=== PATIENT | female | born 1980 | race Caucasian/White ===

== ENCOUNTER → 2016-08-11 | Outpatient (CLI) | payer OTHER | LOC: FIMAGING 12:59 | PROVIDERS: ATTEND Obstetrics & Gynecology | DX: O35.8XX0 Maternal care for other (suspected) fetal abnormality and damage, not applicable or unspecified (principal); Z3A.20 20 weeks gestation of pregnancy ==

== ENCOUNTER → 2016-10-05 | Outpatient (CLI) | payer OTHER | LOC: FIMAGING 12:27 | PROVIDERS: ATTEND Obstetrics & Gynecology | DX: O43.123 Velamentous insertion of umbilical cord, third trimester (principal); Z3A.28 28 weeks gestation of pregnancy ==

== ENCOUNTER → 2016-11-02 | Outpatient (CLI) | payer OTHER | LOC: FIMAGING 09:20 | PROVIDERS: ATTEND Obstetrics & Gynecology | DX: O28.8 Other abnormal findings on antenatal screening of mother (principal); O09.523 Supervision of elderly multigravida, third trimester; Z3A.32 32 weeks gestation of pregnancy ==

== ENCOUNTER → 2016-12-07 | Outpatient (CLI) | payer OTHER | LOC: FIMAGING 09:10 | PROVIDERS: ATTEND Obstetrics & Gynecology | DX: Z34.93 Encounter for supervision of normal pregnancy, unspecified, third trimester (principal); Z3A.37 37 weeks gestation of pregnancy; Z98.891 History of uterine scar from previous surgery ==

== ENCOUNTER 2016-12-23 05:36 | Inpatient (IN) | payer OTHER ==
--- NOTE | 2016-11-25 16:00 | GHP ---
[f rep st] HISTORY AND PHYSICAL DATE OF ADMISSION: 12/23/2016 ADMITTING DIAGNOSES: 1. Intrauterine at 39 weeks. 2. Previous section, declines trial of labor. HISTORY: The patient is a 36-year-old, 2, para 1-0-0-1 at 39 weeks gestation, with an estimated due date of 12/28/2016 by last menstrual period and consistent with a first-trimester ultrasound at 8 weeks. The patient presents to Labor and Delivery with a history of a previous , who desires repeat C section, declines a trial of labor. The patient states there is good movement. Denies any leakage of fluid, vaginal bleeding or any painful contractions at this time. The patient presented to [facility] [place] a [place] [facility] [place] The has been complicated by a known furcate umbilical cord. She has had followup growth ultrasounds with MFM. Growth has been normal, and most recent ultrasound at 32 weeks showed normal growth in 48th percentile. The patient is Rh negative. Father of the baby is also Rh negative. Patient did not need RhoGAM. The patient does have a history of depression and was on Zoloft for the first year after her first . The patient did receive both flu shot and Tdap during this . GBS culture has not been done yet. PAST OBSTETRIC HISTORY: In July of 2012, the patient delivered a viable female at 41 weeks and 3 days, weighing 8 pounds, via secondary to arrest of dilation at 4 cm. PAST GYNECOLOGIC HISTORY: Age of menarche 14. Cycles are every 28 days for 6 days. LMP 03/23/2016. Positive test 04/22/2016. The patient denies a history of abnormal Pap smears or any exposure to sexually transmitted diseases. PAST MEDICAL HISTORY: History of depression after her first . PAST SURGICAL HISTORY: in 2012, wisdom teeth extraction. MEDICATIONS: vitamins. ALLERGIES: Sulfa, penicillin. SOCIAL HISTORY: The patient is . Lives with her and their daughter. She is a wood fence erector. Denies any alcohol, tobacco or illicit drug use. FAMILY HISTORY: Mother with chronic hypertension and hyperthyroidism. A grandfather with prostate cancer. Paternal aunt with rheumatoid arthritis. Paternal grandmother and maternal grandfather have Alzheimer's disease. REVIEW OF SYSTEMS: A 10-point review of systems is negative. Pertinent positives noted in the HPI. LABS: O negative. Antibody negative. RPR nonreactive. Rubella immune. Hepatitis B surface antigen negative. HIV negative. Urine culture is negative. Pap smear negative. GC, chlamydia cultures are negative. GBS is pending. PHYSICAL EXAMINATION: VITAL SIGNS: On admission are stable. GENERAL: The patient is alert and oriented x3, in no apparent distress. CARDIOVASCULAR: Regular rate and rhythm. LUNGS: Clear to auscultation bilaterally. ABDOMEN: Gravid, soft, nontender, nondistended. PELVIC: Deferred. EXTREMITIES: Normal to inspection, without edema or swelling. ASSESSMENT: The patient is a 36-year-old, , para 1-0-0-1 at 39 weeks, with a previous section, declines a trial of labor. PLAN: 1. Admit to Labor and Delivery for repeat . 2. Surgical consents were obtained. Discussed, risks, benefits and alternatives of the procedure including but not limited to bleeding, infection and damage to surrounding organs. The patient understands all risks and wants to proceed with surgery at this time. 3. Antibiotics ammonia distiller to OR. The patient is penicillin allergic. Will give clindamycin. 4. SCDs for DVT prophylaxis. /[id number]/MODL MTDD
--- NOTE | 2016-11-25 16:00 | GHP ---
[f rep st] HISTORY AND PHYSICAL DATE OF ADMISSION: 12/23/2016 ADMITTING DIAGNOSES: 1. Intrauterine at 39 weeks. 2. Previous section, declines trial of labor. HISTORY: The patient is a 36-year-old, 2, para 1-0-0-1 at 39 weeks gestation, with an estimated due date of 12/28/2016 by last menstrual period and consistent with a first-trimester ultrasound at 8 weeks. The patient presents to Labor and Delivery with a history of a previous , who desires repeat C section, declines a trial of labor. The patient states there is good movement. Denies any leakage of fluid, vaginal bleeding or any painful contractions at this time. The patient presented to [facility] as a transfer from [facility] [place] at 24 weeks. The has been complicated by a known furcate umbilical cord. She has had followup growth ultrasounds with MFM. Growth has been normal, and most recent ultrasound at 32 weeks showed normal growth in 48th percentile. The patient is Rh negative. Father of the baby is also Rh negative. Patient did not need RhoGAM. The patient does have a history of depression and was on Zoloft for the first year after her first . The patient did receive both flu shot and Tdap during this . GBS culture has not been done yet. PAST OBSTETRIC HISTORY: In July of 2012, the patient delivered a viable female at 41 weeks and 3 days, weighing 8 pounds, via secondary to arrest of dilation at 4 cm. PAST GYNECOLOGIC HISTORY: Age of menarche 14. Cycles are every 28 days for 6 days. LMP 03/23/2016. Positive test 04/22/2016. The patient denies a history of abnormal Pap smears or any exposure to sexually transmitted diseases. PAST MEDICAL HISTORY: History of depression after her first . PAST SURGICAL HISTORY: in 2012, wisdom teeth extraction. MEDICATIONS: vitamins. ALLERGIES: Sulfa, penicillin. SOCIAL HISTORY: The patient is . Lives with her and their daughter. She is a camp dishwasher. Denies any alcohol, tobacco or illicit drug use. FAMILY HISTORY: Mother with chronic hypertension and hyperthyroidism. A grandfather with prostate cancer. Paternal aunt with rheumatoid arthritis. Paternal grandmother and maternal grandfather have Alzheimer's disease. REVIEW OF SYSTEMS: A 10-point review of systems is negative. Pertinent positives noted in the HPI. LABS: O negative. Antibody negative. RPR nonreactive. Rubella immune. Hepatitis B surface antigen negative. HIV negative. Urine culture is negative. Pap smear negative. GC, chlamydia cultures are negative. GBS is pending. PHYSICAL EXAMINATION: VITAL SIGNS: On admission are stable. GENERAL: The patient is alert and oriented x3, in no apparent distress. CARDIOVASCULAR: Regular rate and rhythm. LUNGS: Clear to auscultation bilaterally. ABDOMEN: Gravid, soft, nontender, nondistended. PELVIC: Deferred. EXTREMITIES: Normal to inspection, without edema or swelling. ASSESSMENT: The patient is a 36-year-old, , para 1-0-0-1 at 39 weeks, with a previous section, declines a trial of labor. PLAN: 1. Admit to Labor and Delivery for repeat . 2. Surgical consents were obtained. Discussed, risks, benefits and alternatives of the procedure including but not limited to bleeding, infection and damage to surrounding organs. The patient understands all risks and wants to proceed with surgery at this time. 3. Antibiotics receptionist telephone operator to OR. The patient is penicillin allergic. Will give clindamycin. 4. SCDs for DVT prophylaxis. /[id number]/MODL MTDD
--- NOTE | 2016-11-25 16:00 | GHP ---
[f rep st] HISTORY AND PHYSICAL DATE OF ADMISSION: 12/23/2016 ADMITTING DIAGNOSES: 1. Intrauterine at 39 weeks. 2. Previous section, declines trial of labor. HISTORY: The patient is a 36-year-old, 2, para 1-0-0-1 at 39 weeks gestation, with an estimated due date of 12/28/2016 by last menstrual period and consistent with a first-trimester ultrasound at 8 weeks. The patient presents to Labor and Delivery with a history of a previous , who desires repeat C section, declines a trial of labor. The patient states there is good movement. Denies any leakage of fluid, vaginal bleeding or any painful contractions at this time. The patient presented to [facility] [place] [facility] [place] The has been complicated by a known furcate umbilical cord. She has had followup growth ultrasounds with MFM. Growth has been normal, and most recent ultrasound at 32 weeks showed normal growth in 48th percentile. The patient is Rh negative. Father of the baby is also Rh negative. Patient did not need RhoGAM. The patient does have a history of depression and was on Zoloft for the first year after her first . The patient did receive both flu shot and Tdap during this . GBS culture has not been done yet. PAST OBSTETRIC HISTORY: In July of 2012, the patient delivered a viable female at 41 weeks and 3 days, weighing 8 pounds, via secondary to arrest of dilation at 4 cm. PAST GYNECOLOGIC HISTORY: Age of menarche 14. Cycles are every 28 days for 6 days. LMP 03/23/2016. Positive test 04/22/2016. The patient denies a history of abnormal Pap smears or any exposure to sexually transmitted diseases. PAST MEDICAL HISTORY: History of depression after her first . PAST SURGICAL HISTORY: in 2012, wisdom teeth extraction. MEDICATIONS: vitamins. ALLERGIES: Sulfa, penicillin. SOCIAL HISTORY: The patient is . Lives with her and their daughter. She is a telecom network manager. Denies any alcohol, tobacco or illicit drug use. FAMILY HISTORY: Mother with chronic hypertension and hyperthyroidism. A grandfather with prostate cancer. Paternal aunt with rheumatoid arthritis. Paternal grandmother and maternal grandfather have Alzheimer's disease. REVIEW OF SYSTEMS: A 10-point review of systems is negative. Pertinent positives noted in the HPI. LABS: O negative. Antibody negative. RPR nonreactive. Rubella immune. Hepatitis B surface antigen negative. HIV negative. Urine culture is negative. Pap smear negative. GC, chlamydia cultures are negative. GBS is pending. PHYSICAL EXAMINATION: VITAL SIGNS: On admission are stable. GENERAL: The patient is alert and oriented x3, in no apparent distress. CARDIOVASCULAR: Regular rate and rhythm. LUNGS: Clear to auscultation bilaterally. ABDOMEN: Gravid, soft, nontender, nondistended. PELVIC: Deferred. EXTREMITIES: Normal to inspection, without edema or swelling. ASSESSMENT: The patient is a 36-year-old, , para 1-0-0-1 at 39 weeks, with a previous section, declines a trial of labor. PLAN: 1. Admit to Labor and Delivery for repeat . 2. Surgical consents were obtained. Discussed, risks, benefits and alternatives of the procedure including but not limited to bleeding, infection and damage to surrounding organs. The patient understands all risks and wants to proceed with surgery at this time. 3. Antibiotics video production intern to OR. The patient is penicillin allergic. Will give clindamycin. 4. SCDs for DVT prophylaxis. /[id number]/MODL MTDD
[2016-12-23] MEDS ORDERED: LR 500 ML IV ONE (05:51)
[2016-12-23] MEDS ORDERED: CITRIC ACID/SODIUM CITRATE 30 ML UDCUP PO ONE (05:51)
[2016-12-23] MEDS ORDERED: CLINDAMYCIN 900 MG/DEXTROSE 50 ML IV ONE (05:51)
[2016-12-23] MEDS ORDERED: LR 1,000 ML IV SCH (06:00)
[2016-12-23 06:08] LABS: PLATELET COUNT 177 10^3/uL (150-400)
--- NOTE | 2016-12-23 07:28 | PREANESOB ---
Obstetric Pre-Anesthesia Info - General Info Proposed Procedure: Repeat C/S NPO Start Time: 00:00 : 2 Para: 1 TODD: 12/28/16 Gestational Age: 39 week(s) and 2 day(s) - Info Status: Full Term, [facility] - Labor Status Section History: Repeat Indications for Current Section: Elective/Repeat Labor Epidural: No Anesthesia Allergies/Adverse Reactions: Allergy/AdvReac Type Severity Reaction Status Date / Time Penicillins Allergy Verified 09/08/14 18:39 Sulfa (Sulfonamide Allergy Verified 12/23/16 05:50 Antibiotics) Home Medications: Medication Instructions Recorded Oral Bcp 09/08/14 Sertraline HCl 09/08/14 Visit Medications: Generic Name Dose Route Start Last Admin Trade Name Freq PRN Reason Stop Dose Admin Lactated Ringer's 1,000 mls @ 125 mls/hr 12/23/16 06:00 12/23/16 07:00 Lr IV 06/21/17 05:59 1,000 mls CONT JODY Administration Discontinued Medications Generic Name Dose Route Start Last Admin Trade Name Freq PRN Reason Stop Dose Admin Citric Acid/Sodium Citrate 30 ml 12/23/16 05:51 12/23/16 07:19 Bicitra PO 12/23/16 05:52 30 ml ONCALL ONE Administration Clindamycin Phosphate/Dextrose 50 mls @ 100 mls/hr 12/23/16 05:51 12/23/16 07 :19 Cleocin 900 Mg (Premix) IV 12/23/16 06:20 50 mls ONCALL ONE Administration Protocol Lactated Ringer's 500 mls @ 0 mls/hr 12/23/16 05:51 12/23/16 07:00 Lr IV 12/23/16 05:52 500 mls ONCE ONE Administration As Directed - Anesthesia History Response to Local Anesthetics: Normal Anesthesia & Operative History: No Prior Problems (Epidural for labor and C/S 4 yrs ago.) Family Anesthesia History: Negative - Social History Substance Use/Abuse: Denies - Vital Signs Height/Weight (Nursing): Height 165.1 cm Weight 75.75 kg - Focused Exam Neck exam: FROM Mallampati Score: Class 1 Mouth exam: normal dental/mouth exam Pulmonary: no respiratory distress, no rales or rhonchi, clear to auscultation Cardiovascular: regular rate and rhythym, no murmur, rub, or gallop Labs: 12/23/16 05:50 Patient ABO/Rh O NEGATIVE 12/23/16 05:50 - Plan Consent Signed and on Chart: Yes Patient/Guardian Understands and Agrees to Plan: Yes
[2016-12-23] MEDS ORDERED: MEPERIDINE 25 MG/ML SYR IVP PRN (07:30)
[2016-12-23] MEDS ORDERED: fentaNYL 100 MCG/2 ML INJ IVP PRN (07:30)
[2016-12-23] MEDS ORDERED: PHENYLEPHRINE HCL 100 MCG/ML SYR IVP PRN (07:30)
[2016-12-23] MEDS ORDERED: METOCLOPRAMIDE 10 MG/2 ML VIAL IVP PRN (07:30)
[2016-12-23] MEDS ORDERED: ONDANSETRON 4 MG/2 ML VIAL IVP PRN ×2 (07:30)
[2016-12-23] MEDS ORDERED: NALOXONE HCL 0.4 MG/ML INJ IVP PRN ×2 (07:30)
[2016-12-23] MEDS ORDERED: morphINE PF 5 MG/10 ML INJ ONE (07:40)
[2016-12-23] MEDS ORDERED: OXYTOCIN 100 UNITS/10 ML VIAL ONE (07:40)
[2016-12-23] MEDS ORDERED: PHENYLEPHRINE HCL 100 MCG/ML SYR ONE (07:40)
[2016-12-23] MEDS ORDERED: fentaNYL 100 MCG/2 ML INJ ONE (07:41)
[2016-12-23] MEDS ORDERED: ONDANSETRON 4 MG/2 ML VIAL ONE (08:47)
[2016-12-23] MEDS ORDERED: POLYETHYLENE GLYCOL 3350 17 GM PKT PO PRN (09:41)
[2016-12-23] MEDS ORDERED: MAGNESIUM HYDROXIDE 30 ML UDCUP PO PRN (09:41)
[2016-12-23] MEDS ORDERED: PROMETHAZINE HCL 25 MG/ML INJ IVP PRN (09:41)
[2016-12-23] MEDS ORDERED: DOCUSATE SODIUM 100 MG CAP PO PRN (09:41)
[2016-12-23] MEDS ORDERED: SIMETHICONE 80 MG TAB CHEW PO PRN (09:41)
[2016-12-23] MEDS ORDERED: LACTULOSE 20 GM/30 ML UDCUP PO PRN (09:41)
[2016-12-23] MEDS ORDERED: BISACODYL 10 MG SUPP PR PRN (09:41)
--- NOTE | 2016-12-23 09:49 | POSTANESTH ---
Post Anesthetic Evaluation Cardiovascular Status: Normal, Stable, Similar to Pre-Op Cond Respiratory Status: Normal, Stable, Similar to Pre-op Cond. Level of Consciousness/Mental Status: Can Participate in Eval, Alert and Oriented Pain Control: Adequate, Prn Tx Ordered Nausea/Vomiting Control: Adequate, Prn Tx Ordered Complications Possibly Related to Anesthesia: None Noted
--- NOTE | 2016-12-23 09:51 | OBDEL ---
Info Type: Repeat Presentation at Delivery: Vertex L&D Analgesia/Anesthesia Type: Spinal GBS+: Yes Antibiotic Used for + GBS: Clindamycin Intrapartum Medications: Generic Name Dose Route Start Last Admin Trade Name Freq PRN Reason Stop Dose Admin Lactated Ringer's 1,000 mls @ 125 mls/hr 12/23/16 06:00 12/23/16 07:00 Lr IV 06/21/17 05:59 1,000 mls CONT JODY Administration Discontinued Medications Generic Name Dose Route Start Last Admin Trade Name Freq PRN Reason Stop Dose Admin Citric Acid/Sodium Citrate 30 ml 12/23/16 05:51 12/23/16 07:19 Bicitra PO 12/23/16 05:52 30 ml ONCALL ONE Administration Clindamycin Phosphate/Dextrose 50 mls @ 100 mls/hr 12/23/16 05:51 12/23/16 07 :19 Cleocin 900 Mg (Premix) IV 12/23/16 06:20 50 mls ONCALL ONE Administration Protocol Lactated Ringer's 500 mls @ 0 mls/hr 12/23/16 05:51 12/23/16 07:00 Lr IV 12/23/16 05:52 500 mls ONCE ONE Administration As Directed - Care Provider Schedule Announcer/SALES EFFECTIVENESS MANAGER: Marilia Turner - Hospital Course Intrapartum: 12/23/16 09:49 Previous c/s, declines trial of labor. Indications for Delivery: Elective (Previous c/s, declines trial of labor) Operative Report - Delivery Pre-op Diagnoses: IUP @ 39 2/7 weeks with previous c/s, declines trial of labor Post-op Diagnoses: IUP @ 39 2/7 weeks with previous c/s, declines trial of labor History of Prior Section: Yes Number of Prior Sections: 1 Indications for Prior Section: Arrest of Dilation Indications for Current Section: Elective/Repeat Procedure: Scheduled Surgeon: Jenna Burk Compliance Representative Dealer: Valery Cross Anesthesiologist: Dagoberto Day Complications: None Findings: A viable male infant in cephalic presentation with 8 and 9 Apgars at 0855 on 12/23. Cord clamping delayed. Placenta delivered spontaneously intact with a 3-vc. Grossly normal appearing uterus, tubes and ovaries bilaterally. Specimen(s)/Path: Other (Specify) (None) IV Fluid (ml): 2,300 EBL: 800 cc UO: 200 cc clear urine at end of pro [place] [facility] Delivery Date: 12/23/16 Delivery Time: 08:55 TODD: 12/28/16 Gestational Age: 39 week(s) and 2 day(s) Sex of Infant: Male Score (1 Min): 8 Score (5 Min): 9 ICD10 Worksheet Patient Problems: Problems Problem Status Onset Previous section complicating Acute S/P repeat low transverse Acute - ICD10 Problem Qualifiers (1) Previous section complicating (2) S/P repeat low transverse
[2016-12-23] MEDS: KETOROLAC 30 MG/1 ML SDV IVP SCH ×3 (10:58→23:50)
--- NOTE | 2016-12-23 11:28 | GOP ---
[f rep st] OPERATIVE REPORT DATE OF OPERATION: 12/23/2016 SURGEON: Jenna Burk DO GROMMET MACHINE OPERATOR: 1. Valery Cross CNM. 2. LUCERO Shukla. ANESTHESIA: Spinal anesthesia. ANESTHESIOLOGIST: Dagoberto Day MD. PREOPERATIVE DIAGNOSIS: Intrauterine at 39 and 2/7 weeks gestation, with history of a prior low transverse section, declines trial of labor. Desires repeat. POSTOPERATIVE DIAGNOSIS: Intrauterine at 39 and 2/7 weeks gestation, with history of a prior low transverse section, declines trial of labor. Desires repeat. PROCEDURE PERFORMED: Repeat low transverse section. FINDINGS: A viable male infant in cephalic presentation with 8 and 9 Apgars, born at 0855. Cord clamping was delayed x 60 seconds. Placenta delivered spontaneously, intact with 3-vessel cord. Grossly normal-appearing uterus, tubes, and ovaries bilaterally. ESTIMATED BLOOD LOSS: 800 cc. INDICATIONS: The patient is a 36-year-old 2, para 1-0-0-1, at 39 weeks and 2/7 days, with an estimated due date 12/28/16 by LMP and consistent with first trimester. She has a history of a previous secondary to arrest of dilation at 4 cm. She declines a trial of labor and desires a repeat C- section at this time.0 Surgical consents were obtained. We discussed risks, benefits, and alternatives of the procedure including but not limited to bleeding, infection and damage to surrounding organs. The patient understands all risks at this time and wants to proceed with surgery. DESCRIPTION OF PROCEDURE: Patient was taken to the operating room, where she was given spinal anesthesia without difficulty. She was prepped and draped in usual sterile manner and placed in supine position with a leftward tilt. Griffin catheter was placed in her bladder. After adequate anesthesia was assured, a Pfannenstiel skin incision was made at the previous scar. The incision was carried down to the underlying layer of fascia with the Bovie. Fascia was then incised in the midline. Fascial incision was extended laterally with Ryan scissors. Superior aspect of fascial incision was grasped with Megha clamps, elevated, and the rectus muscles dissected off sharply. Inferior aspect of the fascial incision was then grasped with Megha clamps, elevated, and the rectus muscles were dissected off sharply. Rectus muscles were then in the midline. Peritoneum was then visualized and entered bluntly and extended superiorly and inferiorly, with good visualization of bladder. Bladder blade was then inserted. Vesicouterine peritoneum was grasped with the pickups, entered sharply with Metzenbaum scissors. Incision was extended laterally, and the bladder flap was created digitally. Bladder blade was then reinserted. A low transverse uterine incision was then made with a knife. Incision was extended anteriorly and posteriorly digitally. There was clear amniotic fluid noted upon entry to the amniotic sac. The baby was then delivered in cephalic presentation without difficulty. Mouth and nose were bulb suctioned. We delayed cord clamping for 1 minute. The cord was then clamped x2 and cut. The was then handed off to awaiting nurse practitioner. Cord blood was obtained and sent. The placenta was then removed , spontaneously intact with 3-vessel cord. The uterus was then exteriorized and cleared of all clots and debris. Uterine incision was then repaired with 0 Vicryl in a running, locked fashion. Hemostasis was noted. A second imbricating layer of suture was then performed with 0 Vicryl. Again, hemostasis was noted. The uterus was then returned to the abdomen. The gutters were cleared of all clots and debris. Reinspection of the uterine incision revealed that it was hemostatic. The rectus muscles were then reapproximated with 2-0 Vicryl in an inverted mattress fashion. The fascia was then closed with 0 Vicryl in a running fashion. Hemostasis was noted. Skin was then closed with 4 -0 Vicryl on a Giovany needle. Steri-Strips were then placed, as well as a bandage. Patient tolerated the procedure well. No complications noted. Sponge, lap, needle, and instrument counts correct x2. The patient was then taken to recovery room in stable condition. IV FLUIDS: 2300 cc of LR. URINE OUTPUT: 200 cc of clear urine at the end the procedure. /[id number]/MODL MTDD
[2016-12-23] MEDS: SENNOSIDES/DOCUSATE SODIUM TAB PO SCH (23:51)
[2016-12-24] MEDS: KETOROLAC 30 MG/1 ML SDV IVP SCH (06:10)
[2016-12-24] MEDS: HYDROCODONE/APAP 5/325 TAB PO PRN ×5 (06:14→22:09)
[2016-12-24 08:27] LABS: INR 0.93 (0.83-1.16); PROTIME(PATIENT) 12.4 SEC (12.0-15.0)
[2016-12-24] MEDS: SENNOSIDES/DOCUSATE SODIUM TAB PO SCH ×2 (08:29→20:00)
--- NOTE | 2016-12-24 09:09 | OBPP ---
Progress Note Assessment/Plan: Assessment: [id number], s/p repeat c/s POD#1 post op anemia Plan: routine post op care start PO iron plan to d/c home tomorrow 12/24/16 09:06 Subjective/ Course: 12/24/16 09:07 pt doing well, she reports min pain, cramping increased with . She reports min bleeding, no clots. She is without difficulty. No void yet, waite still in place. She reports passing gas. She is ambulating without difficulty. FOB is at BS, supportive. Objective: 12/24/16 08:00 Patient ABO/Rh O NEGATIVE 12/23/16 05:50 Temp Pulse Resp BP Pulse Ox 37.2 C 86 15 94/58 L 95 12/24/16 05:11 12/24/16 05:11 12/24/16 05:11 12/24/16 05:11 12/24/16 05:11 Exam: constitutional: WNWF, A&Ox3 Heart: RRR Chest: CTA-B Abdomen: soft, nontender incision: dressing C/D/I uterus: firm @ U-1 lochia: min rubra extremities: trace edema, negative camille's sign Uterine Position/Fundal Height: Umbilicus -1, Midline Uterine Tone: Firm
[2016-12-24] MEDS: IBUPROFEN 600 MG TAB PO PRN ×2 (11:50→18:12)
[2016-12-24] MEDS: FERROUS SULFATE 325 MG TAB PO SCH (20:00)
[2016-12-25] MEDS: IBUPROFEN 600 MG TAB PO PRN ×3 (01:28→14:49)
[2016-12-25] MEDS: HYDROCODONE/APAP 5/325 TAB PO PRN ×3 (02:07→13:05)
[2016-12-25] MEDS: SENNOSIDES/DOCUSATE SODIUM TAB PO SCH (07:38)
[2016-12-25] MEDS: FERROUS SULFATE 325 MG TAB PO SCH ×2 (07:39→08:08)
[2016-12-25 07:58] VITALS: BP 113/73; PULSE 87; RESP 15; TEMP 97.8; O2SAT 95
--- NOTE | 2016-12-25 16:02 | OBPP ---
Progress Note Assessment/Plan: Assessment: 36 yo WF POD#2 s/p scheduled repeat CD doing well. Desires DC home today. Plan: DC home today. 12/25/16 15:58 Subjective/ Course: 12/24/16 09:07 pt doing well, she reports min pain, cramping increased with . She reports min bleeding, no clots. She is without difficulty. No void yet, waite still in place. She reports passing gas. She is ambulating without difficulty. FOB is at BS, supportive. 12/25/16 15:59 Patient is awake and baby boy. She is comfortable with abdominal binder. She is ambulating, passing flatus, and voiding spontaneously. Pain is controlled with PO narcotics and ibuprofen. She desires DC home today if possible. Objective: 12/24/16 08:00 Patient ABO/Rh O NEGATIVE 12/23/16 05:50 Temp Pulse Resp BP Pulse Ox 36.6 C 87 15 113/73 95 12/25/16 07:58 12/25/16 07:58 12/25/16 07:58 12/25/16 07:58 12/25/16 07:58 VSS NAD CTAB, no wheezes or crackles RRR, no murmur detected Abdomen is soft, appropriately tender, incision is clean/dry/intact; FF and below umbilicus No edema in BLE Uterine Position/Fundal Height: Umbilicus -1 Uterine Tone: Firm
--- NOTE | 2016-12-25 16:06 | OBGCSDC ---
General Delivery Information - General Info : 2 Para: 2 Abortions: 0 Type: Repeat L&D Analgesia/Anesthesia Type: Spinal Admission Date: 12/23/16 Labs: Patient ABO/Rh O NEGATIVE 12/23/16 05:50 Hct 31.5 % (38.0-47.0) L 12/24/16 08:00 - Hospital Course Intrapartum: 12/23/16 09:49 Previous c/s, declines trial of labor. : 12/24/16 09:07 pt doing well, she reports min pain, cramping increased with . She reports min bleeding, no clots. She is without difficulty. No void yet, waite still in place. She reports passing gas. She is ambulating without difficulty. FOB is at BS, supportive. 12/25/16 15:59 Patient is awake and baby boy. She is comfortable with abdominal binder. She is ambulating, passing flatus, and voiding spontaneously. Pain is controlled with PO narcotics and ibuprofen. She desires DC home today if possible. - Delivery Providers Surgeon: Jenna Burk Communications Electrician Supervisor: Valery Cross Anesthesiologist: Dagoberto Day - Delivery Number of Prior Sections: 1 Indications for Current Section: Elective/Repeat Surgical Procedures: Scheduled Intra-op Complications: None EBL: 800 cc UO: 200 cc clear urine at end of pro Data [facility] Delivery Date: 12/23/16 Delivery Time: 08:55 TODD: 12/28/16 Gestational Age: 39 week(s) and 4 day(s) Sex of : Male [place] Weight (gm): 3250 g Score (1 Min): 8 Score (5 Min): 9 Discharge Information - Discharge Information Prescriptions: Hydrocodone/APAP 5/325 [Prim 5/325 (*)] 1 - 2 tab PO Q4HRS PRN #40 tab PRN Reason: Pain, Moderate Ibuprofen [Motrin (*)] 600 mg PO Q6HRS PRN #40 tab PRN Reason: Inflammation Condition: Good Instruction/Follow Up: Two Weeks
--- NOTE | 2016-12-25 16:06 | OBGCSDC ---
General Delivery Information - General Info : 2 Para: 2 Abortions: 0 Type: Repeat L&D Analgesia/Anesthesia Type: Spinal Admission Date: 12/23/16 Labs: Patient ABO/Rh O NEGATIVE 12/23/16 05:50 Hct 31.5 % (38.0-47.0) L 12/24/16 08:00 - Hospital Course Intrapartum: 12/23/16 09:49 Previous c/s, declines trial of labor. : 12/24/16 09:07 pt doing well, she reports min pain, cramping increased with . She reports min bleeding, no clots. She is without difficulty. No void yet, waite still in place. She reports passing gas. She is ambulating without difficulty. FOB is at BS, supportive. 12/25/16 15:59 Patient is awake and baby boy. She is comfortable with abdominal binder. She is ambulating, passing flatus, and voiding spontaneously. Pain is controlled with PO narcotics and ibuprofen. She desires DC home today if possible. - Delivery Providers Surgeon: Jenna Burk [employer] Farmworker: Valery Cross Anesthesiologist: Dagoberto Day - Delivery Number of Prior Sections: 1 Indications for Current Section: Elective/Repeat Surgical Procedures: Scheduled Intra-op Complications: None EBL: 800 cc UO: 200 cc clear urine at end of pro Data [place] Delivery Date: 12/23/16 Delivery Time: 08:55 TODD: 12/28/16 Gestational Age: 39 week(s) and 4 day(s) Sex of : Male [place] Weight (gm): 3250 g Score (1 Min): 8 Score (5 Min): 9 Discharge Information - Discharge Information Prescriptions: Hydrocodone/APAP 5/325 [[place] 5/325 (*)] 1 - 2 tab PO Q4HRS PRN #40 tab PRN Reason: Pain, Moderate Ibuprofen [Motrin (*)] 600 mg PO Q6HRS PRN #40 tab PRN Reason: Inflammation Condition: Good Instruction/Follow Up: Two Weeks
== END 2016-12-25 16:40 | disposition home or self-care (01) | DRG 766 ==
LOC: FLD 05:36 → FOB 11:22
PROVIDERS: ADMIT Obstetrics & Gynecology; ATTEND Obstetrics & Gynecology
PROC: 10D00Z1 Extraction of Products of Conception, Low, Open Approach (ICD-10-PCS; principal; 2016-12-23)
DX: O34.211 Maternal care for low transverse scar from previous cesarean delivery (principal); Z37.0 Single live birth; Z3A.39 39 weeks gestation of pregnancy; D64.9 Anemia, unspecified; O99.03 Anemia complicating the puerperium; O99.824 Streptococcus B carrier state complicating childbirth
CPT/HCPCS: J1885; J2274; J2370; J2405; J2550; J2590; J3010

== ENCOUNTER → 2016-12-31 | Outpatient (CLI) | payer OTHER | LOC: FLAB 09:33 | PROVIDERS: ATTEND Obstetrics & Gynecology | DX: O92.29 Other disorders of breast associated with pregnancy and the puerperium (principal) | CPT/HCPCS: G0463 ==